=== PATIENT | female | born 1955 | race Caucasian/White ===

== ENCOUNTER 2017-02-08 16:01 | Emergency (ER) | payer BC, MEDICAID ==
--- NOTE | 2017-02-08 16:55 | Emergency Department Record ---
History of Present Illness - General Chief complaint: Lower Extremity Pain Stated complaint: PAIN IN LEFT LEG Time Seen by Provider: 02/08/17 16:42 Source: Patient, RN notes reviewed Mode of Arrival: Wheelchair - History of Present Illness Initial comments: swollen left leg started yesterday and arthroscopy of the left knee October and leg has been swollen since than Onset/Timin -: Hour(s) Location: Left, Lower Leg History of Same: Yes Radiation: Proximal Severity scale (1-10): 8 Quality: Other Consistency: Intermittent, Getting worse Improves with: Nothing Worsens with: Weight bearing Associated Symptoms: Denies other symptoms - Related Data Home Medications Medication Instructions Recorded Confirmed Last Taken Acetaminop W/ Codeine 300/60Mg 1 tab PO Q6HR PRN 02/08/17 02/08/17 02/08/17 12: 00 [Acetaminophen-Cod #4 Tablet] Amlodipine Besylate [Norvasc] 5 mg PO DAILY 02/08/17 02/08/17 Unknown Cyclobenzaprine HCl 10 mg PO QHS 02/08/17 02/08/17 Unknown [Cyclobenzaprine HCl] Furosemide [Lasix] 20 mg PO DAILY 02/08/17 02/08/17 02/07/17 Ibuprofen [Ibuprofen] 800 mg PO TID 02/08/17 02/08/17 02/08/17 Lisinopril [Lisinopril] 20 mg PO DAILY 02/08/17 02/08/17 Unknown Pantoprazole Sodium [Protonix] 20 mg PO DAILY 02/08/17 02/08/17 Unknown Paroxetine HCl [Paroxetine HCl] 20 mg PO DAILY 02/08/17 02/08/17 Unknown Quetiapine Fumarate [Seroquel] 100 mg PO QHS 02/08/17 02/08/17 Unknown Allergies Allergy/AdvReac Type Severity Reaction Status Date / Time No Known Drug Allergies Allergy Verified 02/08/17 16:46 Travel Screening - Travel/Exposure Within Last 30 Days Have you traveled within the last 30 days?: No - Travel/Exposure Within Last Year Have you traveled outside the [place] in the last year?: No - Additonal Travel Details Have you been exposed to anyone with a communicable illness?: No - Travel Symptoms Symptom Screening: None Review of Systems Reviewed: No additional complaints except as noted below Constitutional: Reports: As per HPI. Denies: Chills, Fever, Malaise, Night sweats, Weakness, Weight change Eyes: Reports: As per HPI. Denies: Eye discharge, Eye pain, Photophobia, Vision change ENT: Reports: As per HPI. Denies: Congestion, Dental pain, Ear pain, Epistaxis , Hearing loss, Throat pain Respiratory: Reports: As per HPI. Denies: Cough, Dyspnea, Hemoptysis, Stridor, Wheezes Cardiovascular: Reports: As per HPI. Denies: Arrhythmia, Chest pain, Dyspnea on exertion, Edema, Murmurs, Orthopnea, Palpitations, Paroxysmal nocturnal dyspnea, Rheumatic Fever, Syncope Endocrine: Reports: As per HPI. Denies: Fatigue, Heat or cold intolerance, Polydipsia, Polyuria Gastrointestinal: Reports: As per HPI. Denies: Abdominal pain, Constipation, Diarrhea, Hematemesis, Hematochezia, Melena, Nausea, Vomiting Genitourinary: Reports: As per HPI. Denies: Abnormal menses, Discharge, Dyspareunia, Dysuria, Frequency, Hematuria, Incontinence, Retention, Urgency Musculoskeletal: Reports: As per HPI. Denies: Arthralgia, Back pain, Gout, Joint swelling, Myalgia, Neck pain Skin: Reports: As per HPI. Denies: Bruising, Change in color, Change in hair/ nails, Lesions, Pruritus, Rash Neurological: Reports: As per HPI. Denies: Abnormal gait, Confusion, Headache, Numbness, Paresthesias, Seizure, Tingling, Tremors, Vertigo, Weakness Psychiatric: Reports: As per HPI. Denies: Anxiety, Auditory hallucinations, Depression, Homicidal thoughts, Suicidal thoughts, Visual hallucinations Hematological/Lymphatic: Reports: As per HPI. 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 - NEURO Hx Neuro Disorders: Yes Hx CVA: Yes (during brain sx 2006) Hx Weakness: Yes (left side) Hx Paralysis: Yes (from CVA-left) - GI Hx GI Disorders: Yes Hx Diverticulitis: Yes Hx Reflux: Yes Hx Rectal Bleeding: Yes (occas due to hemmorhoids) Hx of Polyps: Yes - Hx Genitourinary Disorders: Yes Hx UTI: Yes (4 months ago) Comment:: hyst - ENDOCRINE Hx Endocrine Disorders: No - MUSCULOSKELETAL Hx Musculoskeletal Disorders: Yes Hx Arthritis: Yes - PSYCH Hx Psych Problems: Yes Hx Anxiety: Yes Hx Depression: Yes - HEMATOLOGY/ONCOLOGY Hx Hematology/Oncology Disorders: Yes Hx Blood Transfusions: Yes (2006) Hx Blood Transfusion Reaction: No Family Medical History Any Significant Family History?: Yes Hx Anxiety: Father Hx Depression: Father Hx Heart Disease: Father *Heart Comment: stroke-rt Hx HTN: Father, Mother, Brother/Sister, Grandparents Hx Resp Disorders: Mother *Resp Comment: asthma Hx Stroke: Father Physical Exam - General General Appearance: Alert, Oriented x3, Cooperative, No acute distress - Head Head exam: Normal inspection - Eye Eye exam: Normal appearance, PERRL Pupils: Normal accommodation - ENT ENT exam: Normal exam, Mucous membranes moist, Normal external ear exam, Normal orophraynx, TM's normal bilaterally Ear exam: Normal external inspection. negative: External canal tenderness Nasal Exam: Normal inspection. negative: Discharge, Sinus tenderness Mouth exam: Normal external inspection, Tongue normal Teeth exam: Normal inspection. negative: Dental caries Throat exam: Normal inspection. negative: Tonsillar erythema, Tonsillar exudate - Neck Neck exam: Normal inspection, Full ROM. negative: Tenderness - Respiratory Respiratory exam: Normal lung sounds bilaterally. negative: Respiratory distress - Cardiovascular Cardiovascular Exam: Regular rate, Normal rhythm, Normal heart sounds - GI/Abdominal GI/Abdominal exam: Soft, Normal bowel sounds. negative: Tenderness - Rectal Rectal exam: Deferred - exam: Deferred - Extremities Extremities exam: Normal inspection, Full ROM, Normal capillary refill, Other ( left knee swollen and not warm and whole leg is swollen,pulse in left foot good) . negative: Tenderness - Back Back exam: Reports: Normal inspection, Full ROM. Denies: Muscle spasm, Rash noted, Tenderness - Neurological Neurological exam: Alert, Normal gait, Oriented X3, Reflexes normal - Psychiatric Psychiatric exam: Normal affect, Normal mood - Skin Skin exam: Dry, Intact, Normal color, Warm Course Vital Signs 02/08/17 16:33 Temperature 97.5 F L Pulse Rate 87 Respiratory 20 Rate Blood Pressure 136/46 Pulse Ox 100 - Reevaluation(s) Reevaluation #1: 02/08/17 18:40 decided to xray the left knee it is very swollen and she is having pain to flex. Reevaluation #2: patient's speech is slurred and she admits to one tylenal #4 and she has a baclofen pump. I am uncomfortable giving her any more pain meds. 02/08/17 18:41 Medical Decision Making - Data Complexity MDM Data: X-Ray Ordered and/or Reviewed (venous dopler show a large chairez cyst, prelininary report for DVT neg, left knee xray neg) Disposition Clinical Impression: Edema leg Chairez cyst Qualifiers: Laterality: left Qualified Code(s): M71.22 - Synovial cyst of popliteal space [ Chairez], left knee Disposition: Home, Self-Care Condition: (1) Good Instructions: Edema (ED) Additional Instructions: Take lasix 20 mg daily and see family DrKarel in 5 days Forms: Patient Portal Access Time of Disposition: 19:00 Quality - Quality Measures Quality Measures: N/A - Blood Pressure Screening Does Patient Have Any of the Following: No Blood Pressure Classification: Pre-Hypertensive BP Reading Systolic Measurement: 136 Diastolic Measurement: 46 Screening for High Blood Pressure: < Pre-Hypertensive BP, F/U Documented > [ [id number]] Pre-Hypertensive Follow-up Interventions: Referral to alternative/primary care provider.
--- NOTE | 2017-02-09 10:14 | US VENOUS DOPPLER REPORT ---
EXAM: EMERGENCY VENOUS DOPPLER ULTRASOUND OF THE LEFT LOWER EXTREMITY HISTORY: SWOLLEN LEFT LEG POSTOP OCTOBER 2016. POSSIBLE DVT. TECHNIQUE: Venous Doppler ultrasound of the left lower extremity was performed from the left inguinal region down through the calf. Color flow and spectral analysis was utilized. Within the thigh and popliteal region, supplemental compression and flow augmentation maneuvers were also utilized. Comparison: None. FINDINGS: The common femoral vein, superficial femoral vein, and popliteal vein were all well seen and all appeared negative with flow augmentation and compressibility, and no DVT evident in these structures. The venous anatomy of the calf was somewhat limited due to the degree of soft tissue swelling in the calf. The segments of the posterior and peroneal veins do appear to be visualized as well as the anterior tibial vein with no DVT identified in these structures. While evaluating the venous anatomy, note was made of a complex area in the popliteal region measuring about 8 cm in length which may be a complex Chairez's cyst. This could be further evaluated with an MRI of the left popliteal region if felt clinically warranted and not contraindicated. IMPRESSION: 1. SOMEWHAT LIMITED EVALUATION OF THE VENOUS ANATOMY IN THE CALF, BUT VISUALIZED, NO DVT EVIDENT ON THE LEFT. 2. POSSIBLE LARGE COMPLEX CHAIREZ'S CYST IN THE LEFT POPLITEAL FOSSA DESCRIBED ABOVE. JOB NUMBER: [id number] MTDD
--- NOTE | 2017-02-09 10:24 | RADIOLOGY REPORT ---
EXAM: LEFT KNEE HISTORY: SWOLLEN LEFT KNEE AND LEFT KNEE PAIN. TECHNIQUE: Four views of the left knee were obtained. Comparison: None. FINDINGS: There is probably a large joint effusion present. Mild tricompartment degenerative arthritis. No acute fracture or dislocation seen. IMPRESSION: 1. MILD TRICOMPARTMENT DEGENERATIVE ARTHRITIS. 2. PROBABLE LARGE JOINT EFFUSION. FOLLOW-UP MRI OF THE LEFT KNEE MAY BE USEFUL FOR FURTHER EVALUATION IF NOT CONTRAINDICATED. J[facility]BER: [id number] [facility]
== END 2017-02-08 19:10 | disposition home or self-care (01) ==
LOC: ER 16:01
DX: R60.0 Localized edema (principal); M71.22 Synovial cyst of popliteal space [Baker], left knee
CPT/HCPCS: 99283; 99284

== ENCOUNTER 2017-03-01 10:35 | Day surgery (SDC) | payer BC, MEDICAID ==
--- NOTE | 2017-03-01 06:48 | History and Physical Report ---
DATE: 02/28/2017. 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 On 01/2017 a spinal cord stimulator trial was conducted with 75 to 90 percent pain control. Due to the failure of all therapies and the success of the trial, she presents today for implantation of a permanent system. PAST MEDICAL HISTORY: Post central pain or stroke syndrome. PAST SURGICAL HISTORY: None provided. MEDICATIONS ON ADMISSION: To be provided. ALLERGIES: None. REVIEW OF SYSTEMS: The patient is appropriate and in no acute distress. The remainder of the systems review shows that she is wheelchair bound. SOCIAL HISTORY: Caffeine. FAMILY HISTORY: Noncontributory. PHYSICAL EXAMINATION: General: Height and weight are not known. Vital Signs: Blood pressure 140/80. Musculoskeletal: Current examination shows the primary pain to be in the lumbar spine. Range of motion does produce pain moving into both legs, somewhat more left than right. Ambulation: Assistive device utilized. Neurologic: Cranial nerves are intact. IMPRESSION: 1. CENTRAL PAIN SYNDROME, ICD-10 CODE G89.0. 2. LUMBAR RADICULITIS, ICD-10 CODE M54.16 AND M54.17. PLAN: The patient is here for implantation of a permanent spinal cord stimulator after a successful trial and the failure of all other therapies. The potential risks, side effects, and complications including spinal cord injury, nerve root injury, and spinal headache have all been discussed and reviewed. The procedure will be considered outpatient, although an overnight stay will be evaluated. SAGAR FAITH D.O. Date & Time JOB NUMBER: [id number] cc: Antione Vila
[~2017-03-01 10:35] MED LIST: ACETAMINOPHEN 1,000 MG/100 ML BTL IV ONE; CEFAZOLIN 2 Gram 2 GM/50 ML BAG IVPB ONE; FAMOTIDINE 20MG TABLET PO ONE; MECLIZINE 25 MG TABLET PO ONE; METOCLOPRAMIDE 10 MG TABLET PO ONE
[2017-03-01] MEDS ORDERED: HYDROMORPHONE HCL 2 MG/ML VIAL IV ONE (13:57)
[2017-03-01] MEDS ORDERED: *PACU ONLY* KETAMINE HCL 10 MG/ML (20ML) VIAL IV ONE (14:00)
[2017-03-01] MEDS ORDERED: PROPOFOL 10 MG/ML VIAL IV ONE (14:00)
[2017-03-01] MEDS ORDERED: FENTANYL PF 100MCG/2ML VIAL IV ONE (14:00)
[2017-03-01] MEDS ORDERED: FLUMAZENIL 1MG/10ML VIAL IV ONE (14:00)
[2017-03-01] MEDS ORDERED: LIDOCAINE 2% MDV (20MG/ML) 20ML VIAL IV ONE (14:00)
[2017-03-01] MEDS ORDERED: MIDAZOLAM HCL 2MG/2ML VIAL IV ONE (14:00)
[2017-03-01] MEDS ORDERED: RINGERS SOLUTION,LACTATED 1,000 ML IV PRN (14:33)
[2017-03-01] MEDS ORDERED: AL HYDROX/MAG HYDROX 30ML UD PO PRN (14:44)
[2017-03-01] MEDS ORDERED: DIPHENHYDRAMINE HCL 25 MG CAPSULE PO PRN ×2 (14:44)
[2017-03-01] MEDS ORDERED: SENNOSIDES/DOCUSATE SODIUM UD CAPSULE PO PRN ×2 (14:44)
[2017-03-01] MEDS ORDERED: DIPHENHYDRAMINE HCL IV 50 MG/ML VIAL IVP PRN ×2 (14:44)
[2017-03-01] MEDS ORDERED: METOCLOPRAMIDE HCL 10 MG/2 ML VIAL IVP PRN (14:44)
[2017-03-01] MEDS ORDERED: HYDROCODONE/APAP 7.5/325MG TABLET PO PRN ×2 (14:44)
[2017-03-01] MEDS ORDERED: OXYCODONE/APAP 10MG-325MG TABLET PO PRN (14:44)
[2017-03-01] MEDS ORDERED: TEMAZEPAM 15 MG CAPSULE PO PRN ×2 (14:44)
[2017-03-01] MEDS ORDERED: ACETAMINOPHEN 325 MG TAB PO PRN ×2 (14:44)
[2017-03-01] MEDS ORDERED: HYDROMORPHONE HCL 2 MG/ML VIAL IM PRN (14:44)
[2017-03-01] MEDS ORDERED: METOCLOPRAMIDE 10 MG TABLET PO PRN (14:44)
[2017-03-01] MEDS ORDERED: BACLOFEN 10 MG TABLET PO PRN (15:47)
[2017-03-01] MEDS ORDERED: CEFAZOLIN 1G VIAL IM ONE (15:49)
[2017-03-01] MEDS ORDERED: LIDOCAINE 1% W/EPI 1:200,000 MPF 30ML SQ ONE (15:49)
[2017-03-01] MEDS ORDERED: BUPIVACAINE 0.5% W/EPI MPF 30 ML VIAL IVP ONE (15:49)
[2017-03-01] MEDS: CEFAZOLIN 2 Gram 2 GM/50 ML BAG IVPB SCH (20:21)
[2017-03-01] MEDS: 0.9 % SODIUM CHLORIDE 10ML SYR IVP SCH (21:37)
[2017-03-01] MEDS: OXYCODONE/APAP 10MG-325MG TABLET PO PRN (21:38)
[2017-03-01] MEDS ORDERED: PAROXETINE HCL 10 MG TABLET PO SCH (22:00)
[2017-03-01] MEDS ORDERED: QUETIAPINE FUMARATE 100 MG TABLET PO SCH (22:00)
[2017-03-01] MEDS ORDERED: CYCLOBENZAPRINE 10MG TABLET PO SCH (22:00)
[2017-03-02] MEDS: OXYCODONE/APAP 10MG-325MG TABLET PO PRN ×2 (02:50→10:00)
[2017-03-02] MEDS: CEFAZOLIN 2 Gram 2 GM/50 ML BAG IVPB SCH ×2 (03:53→10:00)
[2017-03-02] MEDS: HYDROMORPHONE HCL 1 MG/ML CPJ IM PRN ×2 (03:58→08:21)
[2017-03-02] MEDS ORDERED: PANTOPRAZOLE SODIUM 40 MG TABLET PO SCH (07:00)
--- NOTE | 2017-03-02 08:10 | Operative Note - [employer] ---
DATE OF SURGERY: 03/01/2017. PREOPERATIVE DIAGNOSIS: 1. POSTLUMBAR LAMINECTOMY SYNDROME, ICD-10 CODE M96.1. 2. LUMBAR RADICULITIS, ICD-10 CODE M54.16 AND M54.17. POSTOPERATIVE DIAGNOSIS: 1. POSTLUMBAR LAMINECTOMY SYNDROME, ICD-10 CODE M96.1. 2. LUMBAR RADICULITIS, ICD-10 CODE M54.16 AND M54.17. OPERATION: 1. Fluoroscopically guided epidural access, right T11-12. Placement of spinal cord stimulator lead 1, a [employer] Infinion 16 with 16 electrodes positioned left T-7. 2. Fluoroscopically guided epidural access, right T12-L1. Placement of spinal cord stimulator lead 2, a [employer] Infinion 16 with 16 electrodes positioned right T-7. 3. Complex programming of lead 1 for 20 minutes followed by complex programming of lead 2 for 20 minutes. 4. Incision, subcutaneous dissection, and anchoring of lead 1 and lead 2 to supraspinous fascia using [employer] locking anchor. 5. Incision, subcutaneous dissection, and creation of subcutaneous pouch at right posterior gluteal margin for placement of generator identified as a [employer] programmable rechargeable. 6. Tunnelling between pouches. Placement of external portions of lead 1 and lead 2 into generator pouch, each lead interfaced to the generator. 7. Placement of generator pouch securing to posterior fascia using nonabsorbable suture. Placement of leads into pouch. 8. Closure of incisions with Vicryl for the fascia and david for the skin. Dressing placed. 9. Complex recovery room programming of internal generator for home use, two stimulators, for 20 minutes. SURGEON: Hieu Robles D.O. ANESTHESIA: Local. ANESTHESIA PROVIDER: Diane Rojas CRNA. INDICATION: This patient presents with a history of an intractable lumbar radiculitis. Due to the failure a spinal cord stimulator trial was conducted with 75 to 90 percent pain control. Due to the failure of all therapies and the success of the trial, the patient presents today for implantation of a permanent system. PROCEDURE: Intravenous line, vital sign monitoring, and intravenous sedation. Prepped and draped with sterile technique. Under imaging right of the midline the epidural interspace at 11-12 and 12-1 was marked and infiltrated. Two separate curved access Epimed needles with loss of resistance. At 11-12 the spinal cord stimulator lead 1, a [employer] Infinion 16 with 16 electrodes positioned left T-7. At the epidural access of 12-1 right of the midline, spinal cord lead 2, a [employer] Infinion 16 with 16 electrodes , was positioned right of T-7. Complex programming of lead 1 over 20 minutes followed by complex programming of lead 2 over 20 minutes. This ultimately resulted in patterns of stimulation across the back and into the legs. The patient indicated that we were in all of the areas of the pain. She was given the options to implant or continue to program. She opted to implant. The skin above and below the needles was infiltrated. An incision was made and subcutaneous dissection was conducted to the supraspinous fascia. Each lead was then anchored to the supraspinous fascia using an anchoring device and nonabsorbable suture. At the right posterior superior gluteal margin, a site picked by the patient for the generator, the skin was infiltrated. An incision was made and subcutaneous dissection was conducted to form a pouch of a suitable size and depth for the generator. Antibiotic irrigation and Bovie for hemostasis. The generator was then placed into the pouch and secured with nonabsorbable suture. The leads were placed into the pouch. Both incisions were then closed with Vicryl for the fascia and david for the skin. Dressing was placed. She was transferred to the recovery room stable showing no side effects from the procedure or the sedation. She was monitored, and when fully awake and alert she requested to be discharged home. She will meet the criteria and then be discharged. DISCHARGE INSTRUCTIONS: 1. The sites will remain clean and dry. No showering or bathing in any way that would disrupt dressings. 2. Standard medications to be resumed including Levaquin the antibiotic 500 mg once a day for 14 days. 3. The patient will be seen in the office in five to seven days at which point we will check the incision and remove the david. At that point, she will be cleared for activities. 4. All other instructions provided. Numbers to contact and possible problems were given. She will be discharged. JOB NUMBER: Genaro Solares M.D. MTDD
[2017-03-02] MEDS ORDERED: LISINOPRIL 20 MG TABLET PO SCH (10:00)
[2017-03-02] MEDS ORDERED: AMLODIPINE BESYLATE 5MG TAB PO SCH (10:00)
[2017-03-02] MEDS: 0.9 % SODIUM CHLORIDE 10ML SYR IVP SCH (10:01)
--- NOTE | 2017-03-03 16:25 | RADIOLOGY REPORT ---
EXAM: SPINE, 1 VIEW HISTORY: PAIN PUMP STIMULATOR PLACEMENT. TECHNIQUE: Single AP view of the lumbar spine was performed. FINDINGS: Pain pump stimulator tip is at T6-7 level. IMPRESSION: PAIN PUMP STIMULATOR TIP IS AT THE T6-7 LEVEL. JOB NUMBER: [id number] MTDD
== END 2017-03-02 10:50 | disposition home or self-care (01) ==
LOC: SUR 10:35 → MEDSURG 14:14 → SUR 03-02 10:50
PROVIDERS: ATTEND Pain Medicine Interventional Pain Medicine
DX: M96.1 Postlaminectomy syndrome, not elsewhere classified (principal); M54.16 Radiculopathy, lumbar region; M54.17 Radiculopathy, lumbosacral region; I10 Essential (primary) hypertension; E78.00 Pure hypercholesterolemia, unspecified; Z86.73 Personal history of transient ischemic attack (TIA), and cerebral infarction without residual deficits; G89.0 Central pain syndrome
CPT/HCPCS: 63685; 63650 ×2; 01936; 95972; 85002; 72020; 94760; J3010; J1170 ×2; J0690 ×2